=== PATIENT | female | born 1935 | race Asian ===

== ENCOUNTER 2017-05-27 10:02 | Emergency (ER) | payer MEDICARE ==
[~2017-05-27] VITALS: Ht 147.3 cm; Wt 61.8 kg
[~2017-05-27 10:02] MED LIST: CAPT12.55 PO; HYDR25TA PO; LEVO50TA13 PO; SIMV-260 PO
[2017-05-27] MEDS ORDERED: LISI-662 PO (10:08)
[2017-05-27] MEDS ORDERED: ATOR10TA84 PO (10:08)
[2017-05-27] MEDS ORDERED: ACETAMINOPHEN 500 MG TABLET PO ONE (11:15)
[2017-05-27 13:25] VITALS: BP 183/73
== END 2017-05-27 13:57 | disposition home or self-care (01) ==
LOC: EMS 10:06
DX: S00.03XA Contusion of scalp, initial encounter (principal); S70.01XA Contusion of right hip, initial encounter; E78.00 Pure hypercholesterolemia, unspecified; E03.9 Hypothyroidism, unspecified; I10 Essential (primary) hypertension; I20.9 Angina pectoris, unspecified; V00.131A Fall from skateboard, initial encounter; Y93.51 Activity, roller skating (inline) and skateboarding; Y92.89 Other specified places as the place of occurrence of the external cause; Y99.8 Other external cause status
CPT/HCPCS: 70450; 73502; 99284

== ENCOUNTER 2021-11-08 12:54 | Emergency (ER) | payer MEDICARE ==
[~2021-11-08] VITALS: Ht 149.9 cm; Wt 54.5 kg
[~2021-11-08 12:54] MED LIST changes: +ATOR10TA84 PO; -CAPT12.55 PO; -HYDR25TA PO; +LISI-894 PO; -SIMV-260 PO
[2021-11-08 12:58] VITALS: BP 164/74
[2021-11-08] MEDS ORDERED: ACETAMINOPHEN 500 MG TABLET PO ONE (15:00)
== END 2021-11-08 16:11 | disposition home or self-care (01) ==
LOC: EMS 13:00
DX: S83.91XA Sprain of unspecified site of right knee, initial encounter (principal); S83.92XA Sprain of unspecified site of left knee, initial encounter; I10 Essential (primary) hypertension; E78.00 Pure hypercholesterolemia, unspecified; E03.9 Hypothyroidism, unspecified; W01.0XXA Fall on same level from slipping, tripping and stumbling without subsequent striking against object, initial encounter; Y93.89 Activity, other specified; Y92.89 Other specified places as the place of occurrence of the external cause; Y99.8 Other external cause status
CPT/HCPCS: 99283